=== PATIENT | male | born 1995 | race Caucasian/White ===

== ENCOUNTER 2017-01-05 17:22 | Emergency (ER) | payer SELFPAY ==
[~2017-01-05] VITALS: Ht 185.4 cm; Wt 87.2 kg
[~2017-01-05 17:22] MED LIST: ANAPROX DS550 M1 PO; FLEXERIL10 MG PO; MOTRIN800 MG PO; PRILOSEC10 MG PO; ZITHROMAX Z-PA250 MG PO
[2017-01-05] MEDS ORDERED: AFRIN,GENASAL D15 ML BOTH NARES (18:42)
[2017-01-05 19:07] VITALS: BP 138/87
== END 2017-01-05 19:07 | disposition home or self-care (01) ==
LOC: EME 17:22
DX: R04.0 Epistaxis (principal); F17.200 Nicotine dependence, unspecified, uncomplicated
CPT/HCPCS: 99281; 99283

== ENCOUNTER 2017-05-06 22:33 | Emergency (ER) | payer SELFPAY ==
[~2017-05-06] VITALS: Ht 180.3 cm; Wt 86.0 kg
[~2017-05-06 22:33] MED LIST changes: +AFRIN,GENASAL D15 ML BOTH NARES
[2017-05-06 23:08] VITALS: BP 141/63
== END 2017-05-07 01:50 | disposition left against medical advice (07) ==
LOC: EME 22:33
DX: S99.911A Unspecified injury of right ankle, initial encounter (principal); Z53.21 Procedure and treatment not carried out due to patient leaving prior to being seen by health care provider
CPT/HCPCS: 73610